=== PATIENT | female | born 1955 ===

== ENCOUNTER 2017-07-16 10:04 | Emergency (ER) | payer MEDICAID, OTHER ==
--- NOTE | 2017-07-16 10:34 | C.PDOC ---
History Of Present Illness 62 year old female presents to the emergency department with complaints of persistent watery diarrhea for the past two weeks with occasional nausea and vomiting. Patient report experiencing involuntary weight loss of 30lbs in the last 6 months. Patient denies fever, chest pain, shortness of breath, cough, dysuria, or sick contacts. Time Seen by Provider: 07/16/17 10:15 Chief Complaint (Nursing): Abdominal Pain History Per: Patient Onset/Duration Of Symptoms: Other (2 weeks) Associated Symptoms: Nausea, Vomiting, Diarrhea (watery). denies: Chest Pain, Other (shortness of breath, cough, dysuria, sick contact.) Past Medical History Reviewed: Historical Data, Nursing Documentation, Vital Signs Vital Signs: Last Vital Signs Temp 98 F 07/16/17 14:56 Pulse 88 07/16/17 14:56 Resp 18 07/16/17 14:56 BP 184/108 H 07/16/17 14:56 Pulse Ox 99 07/16/17 15:10 - Medical History PMH: HTN Surgical History: No Surg Hx Family History: States: No Known Family Hx - Social History Hx Alcohol Use: No Hx Substance Use: No - Immunization History Hx Tetanus Toxoid Vaccination: No Hx Influenza Vaccination: No Hx Pneumococcal Vaccination: No Review Of Systems Constitutional: Negative for: Fever Cardiovascular: Negative for: Chest Pain, Palpitations Respiratory: Negative for: Cough, Shortness of Breath Gastrointestinal: Positive for: Nausea, Vomiting, Diarrhea. Negative for: Abdominal Pain Genitourinary: Negative for: Dysuria, Hematuria Skin: Negative for: Rash Physical Exam - Physical Exam Appears: Well, Non-toxic, No Acute Distress Oral Mucosa: Moist Cardiovascular: Rhythm Regular Respiratory: Normal Breath Sounds, No Rales, No Rhonchi, No Wheezing Gastrointestinal/Abdominal: Normal Exam, Bowel Sounds, Soft, No Tenderness, No Guarding, No Rebound Neurological/Psych: Oriented x3 ED Course And Treatment - Laboratory Results Result Diagrams: 07/16/17 11:11 07/16/17 11:11 O2 Sat by Pulse Oximetry: 99 (RA) Pulse Ox Interpretation: Normal - CT Scan/US Abdomen/pelvis Other Rad Studies (CT/US): Interpreted By Me, Read By Radiologist, Radiology Report Reviewed CT/US Interpretation: Findings consistent with significant constipation as described. Mild fatty hepatic infiltration. There is a very tiny 3.6 mm rounded low-attenuation focus within the anterior aspect mid pancreatic body that appears to be contiguous with the pancreatic duct ; rule out IPMN. Lobular slightly thinned appearing cortex left kidney particularly along the inferior pole which could be secondary to chronic infection with scarring. There is a discrete tiny cyst lower pole right kidney with what could represent layering milk of calcium or possibly layering excrete contrast material. Additionally, there is mild dilatation of the left renal collecting system which also exhibits areas of what from felt to represent layering contrast. Slight dilatation of the left renal pelvis and proximal left ureter ; rule out UPJ. Though appears to be some minor enhancement of the urothelium of the left renal collecting system renal pelvis and proximal left ureter. . There is also a minimal wall thickening of the urinary bladder. Rule out sequela of UTI however other intrinsic -invasive urothelial abnormality not excluded. Correlation with urinalysis. Progress Note: Plan: Blood work, UA, CT scan abd/pelvis ordered and reviewed. Patient given IV NS bolus. UA shows UTI, given PO Ciprofloxacin. CT scan shows thicking of bladder and lesion in pamcreatic body - patient and family made aware of all findings and given copies of studies. On reassessment, patient is resting comfortably, in no pain/distress. On exam, abdomen is soft and nontender. Patient given Rxs for Ciprofloxacin and Colace, and instructed to follow up with GI within 1 week. She and family understand she should be brought back to ED if symptoms worsen. Disposition Counseled Patient/Family Regarding: Studies Performed, Diagnosis, Need For Followup, Rx Given - Disposition Referrals: Juan Francisco Harrison MD [Staff Provider] - Thanh Del Cid MD [Staff Provider] - Disposition: HOME/ ROUTINE Disposition Time: 15:00 Condition: STABLE Additional Instructions: FOLLOW UP WITH ACCOUNT ANALYST WITHIN 1 WEEK FOR FURTHER EVALUATION OF YOUR PANCREATIC NODULE AND CONSTIPATION/DIARRHEA USE MEDICATIONS DIRECTED DRINK PLENTY OF WATER TAKE YOUR MEDICATIONS FOR HYPERTENSION AND DIABETES EVERY DAY RETURN TO EMERGENCY ROOM IF SYMPTOMS WORSEN SEGUIMIENTO CON GASTROENTERLOGO DENTRO DE 1 SEMANA PARA BLACK NUEVA EVALUACIN DE SHEN NODULE PANCRETICO Y ESTREIMIENTO / DIARREA USE MEDICAMENTOS SEGN LO INDICADO BEBER ABUNDANTE AGUA TOME CELINA MEDICAMENTOS PARA HIPERTENSIN Y DIABETES TODOS LOS LOZA REGRESE AL KARLA DE EMERGENCIA SI LOS SNTOMAS EMPEORAN Prescriptions: Ciprofloxacin [Cipro] 1 tab PO BID #14 tab Docusate [Colace] 100 mg PO DAILY #30 cap Instructions: Constipation, Adult (DC), Urinary Tract Infection, Adult (DC), Diabetes Type 2 (DC) Forms: [employer] (Taiwanese) Print Language: SAMI - Clinical Impression Clinical Impression: UTI (urinary tract infection), Constipation, Intraductal papillary mucinous neoplasm - Scribe Statement The provider has reviewed the documentation as recorded by the Scribe (Dieudonne Farmer) Provider Attestation: All medical record entries made by the Scribe were at my direction and personally dictated by me. I have reviewed the chart and agree that the record accurately reflects my personal performance of the history, physical exam, medical decision making, and the department course for this patient. I have also personally directed, reviewed, and agree with the discharge instructions and disposition.
[2017-07-16] MEDS ORDERED: Iohexol 240 (50 ml) PO STA (10:42)
[2017-07-16] MEDS ORDERED: Sodium Chloride 0.9% 1,000 ML IV ONE ×2 (10:42→12:06)
[2017-07-16 11:19] LABS: BASO % 0.6 % (0.0-2.0); EOS % 0.7 % (0.0-4.0); HEMOGLOBIN 12.7 g/dL (11.0-16.0); LYMPH # 1.9 K/uL (1.0-4.3); LYMPH % 31.4 % (20.0-40.0); MEAN CELL VOLUME 90.4 fL (81.0-99.0); MEAN CORPUSCULAR HEMOGLOBIN 31.3 pg (27.0-31.0); MEAN CORPUSCULAR HGB CONC 34.6 g/dL (33.0-37.0); MEAN PLATELET VOLUME 9.9 fL (7.2-11.7); MONO # 0.5 K/uL (0.0-0.8); NEUT # 3.7 K/uL (1.8-7.0); NEUT % 59.3 % (50.0-75.0); RBC 4.07 Mil/uL (3.80-5.20); RED CELL DISTRIBUTION WIDTH 13.1 % (11.5-14.5); WHITE BLOOD COUNT 6.2 K/uL (4.8-10.8)
[2017-07-16] MEDS ORDERED: Iohexol 240 (50 ml) ONE (11:20)
[2017-07-16 11:33] LABS: SQUAMOUS EPITHIAL 12 /hpf (0-5); URINE AMORPHOUS SEDIMENT FEW /ul (<OCC); URINE BACTERIA FEW (<OCC); URINE BILIRUBIN NEGATIVE (NEGATIVE); URINE BLOOD 1+ (NEGATIVE); URINE CLARITY Hazy (Clear); URINE COLOR Red (YELLOW); URINE GLUCOSE (UA) 3+ mg/dL (Normal); URINE LEUKOCYTE ESTERASE 2+ Leu/uL (Negative); URINE PROTEIN NEGATIVE (NEGATIVE); URINE UROBILINOGEN NORMAL mg/dL (0.2-1.0)
[2017-07-16 11:42] LABS: ALB/GLOB RATIO 1.2 (1.0-2.1); ALBUMIN 3.9 g/dL (3.5-5.0); ALT/SGPT 11 U/L (9-52); AST/SGOT 15 U/L (14-36); BLOOD UREA NITROGEN 11 mg/dL (7-17); CALCIUM 8.5 mg/dl (8.6-10.4); GFR AFRICAN-AMERICAN > 60; GFR NON-AFRICAN AMERICAN > 60; LIPASE 49 U/L (23-300)
[2017-07-16] MEDS ORDERED: Sodium Chloride 0.9% 1,000 ML ONE (12:28)
[2017-07-16] MEDS ORDERED: Iodixanol 320 MG/ML 100 ML BOTTLE IV ONE (12:46)
[2017-07-16 13:55] VITALS: PULSE 88
--- NOTE | 2017-07-16 14:26 | CT ---
PROCEDURE: CT scan abdomen pelvis dated 07/08/2017 HISTORY: Abdominal pain with diarrhea and weight loss. COMPARISON: No prior study available for comparison TECHNIQUE: Contiguous axial images of the abdomen and pelvis performed following oral and intravenous injection of approximately 100 cc Visipaque 320 contrast material. Additional 2 dimensional sagittal and coronal reformats generated. Radiation dose: Total exam DLP = This CT exam was performed using one or more of the following dose reduction techniques: Automated exposure control, adjustment of the mA and/or kV according to patient size, and/or use of iterative reconstruction technique. FINDINGS: LOWER THORAX: Heart size is upper limits of normal/ borderline enlarged. No significant pericardial effusion. Minor passive atelectasis both posterior lower lung zones of. No evidence of basilar pneumothorax. There is a small to medium size hiatal hernia. LIVER: Liver exhibits normal size measuring approximately 16.5 cm in CC dimension. Mild diffuse fatty hepatic infiltration. No obvious hepatic mass or collection. Portal and splenic veins are opacified. The GALLBLADDER AND BILE DUCTS: Gallbladder physiologically distended. No evidence of intraluminal gallbladder calculi. PANCREAS: There is a very tiny approximately 3.6 mm rounded low-attenuation in the region of the anterior mid body of the pancreas which is too small to characterize though appears to be contiguous with the pancreatic duct. Pancreatic duct is visible lobe the remaining duct is not dilated. This small rounded low-attenuation focus is of uncertain etiology however benign or malignant cystic lesion (IPMN) not excluded. Followup studies such as repeat CT scan with pancreatic protocol could be performed. Alternately, MRCP may be of some benefit. SPLEEN: Spleen exhibits normal size and attenuation pattern without masses collections or calcifications. ADRENALS: No adrenal lesions seen KIDNEYS AND URETERS: The left kidney exhibits somewhat lobular cortical contour and thinning particularly along the lower pole suggesting sequela of chronic scarring new. In addition, there appears to be dense contrast material layering within the dependent portion of the dilated calices. . There is mild dilatation of the upper pole collecting system and right renal pelvis and proximal ureter which tapers rapidly; rule out UPJ. . There is also slight enhancement of the urothelium of the left renal collecting system, left renal pelvis and proximal left ureter. Rule out UTI although other intrinsic -invasive urothelial abnormality not excluded. In addition, there also appears to be a discrete rounded approximately 13 mm cyst lower pole left kidney which also exhibits CT layering hyperdense possibly representing milk of calcium. Note also that is difficult to distinguish layering contrast material from concomitant calculi. Follow-up renal ultrasound could be performed for further evaluation BLADDER: Urinary bladder is physiologically distended with minimal wall thickening. Rule out cystitis. Correlation with urinalysis recommended. REPRODUCTIVE: Questionable small peripherally enhancing uterine fibroid. Pelvic ultrasound followup could be performed. Questionable trace amount of free fluid in the pelvis APPENDIX: The appendix is not seen with complete certainty however what could represent a incompletely visualized appendix seen on axial series 3 image number [id number]. No definitive inflammatory changes right lower quadrant of the abdomen. BOWEL: Evaluation of the bowel is limited due to the incomplete opacification. The stomach is distended with food debris liquid and air. Visualized loops of small bowel exhibit relatively normal contour and caliber. No evidence of acute mechanical small bowel obstruction. There is a very large amount of stool seen throughout the cecum at ascending and transverse colon to the level of the proximal descending colon consistent with fecal retention/ constipation. Lesser amount of stool seen within the sigmoid colon and rectum. No definitive evidence of mural wall thickening. PERITONEUM: No gross free intraperitoneal air. Questionable trace fluid within the cul de sac. . Small fat containing ventral wall hernia. The the LYMPH NODES: Unremarkable. No enlarged lymph nodes. VASCULATURE: No evidence of abdominal aortic or iliac artery aneurysms. . BONES: Minor multilevel degenerative spondylosis of the lower thoracic and lumbar spine. There are scattered of lucencies seen throughout the lower thoracic and upper lumbar spine possibly due to more localized areas of demineralization. Clinical correlation recommended to exclude the possibility of early lytic lesions. OTHER FINDINGS: None. IMPRESSION: Findings consistent with significant constipation as described. Mild fatty hepatic infiltration. There is a very tiny 3.6 mm rounded low-attenuation focus within the anterior aspect mid pancreatic body that appears to be contiguous with the pancreatic duct ; rule out IPMN. Lobular slightly thinned appearing cortex left kidney particularly along the inferior pole which could be secondary to chronic infection with scarring. There is a discrete tiny cyst lower pole right kidney with what could represent layering milk of calcium or possibly layering excrete contrast material. Additionally, there is mild dilatation of the left renal collecting system which also exhibits areas of what from felt to represent layering contrast. Slight dilatation of the left renal pelvis and proximal left ureter ; rule out UPJ. Though appears to be some minor enhancement of the urothelium of the left renal collecting system renal pelvis and proximal left ureter. . There is also a minimal wall thickening of the urinary bladder. Rule out sequela of UTI however other intrinsic -invasive urothelial abnormality not excluded. Correlation with urinalysis.
[2017-07-16 14:57] VITALS: BP 184/108; RESP 18; TEMP 98
[2017-07-16 15:04] VITALS: O2SAT 99
== END 2017-07-16 15:33 | disposition home or self-care (01) ==
LOC: C.ER 10:04
DX: N39.0 Urinary tract infection, site not specified (principal); K59.00 Constipation, unspecified; D05.10 Intraductal carcinoma in situ of unspecified breast; I10 Essential (primary) hypertension
CPT/HCPCS: 74177; 80053; 81001; 82948; 83690; 85025; 87086; 87181; 96360; 96361; 99285; J7040; Q9966; Q9967

== ENCOUNTER 2017-08-16 22:09 | Emergency (ER) | payer MEDICAID ==
[2017-08-16 22:19] VITALS: RESP 18; TEMP 98.1
[2017-08-16] MEDS ORDERED: Sodium Chloride 0.9% 1,000 ML IV ONE (22:24)
--- NOTE | 2017-08-16 22:26 | C.PDOC ---
History Of Present Illness 62 year old female with a Hx of HTN and diabetes presents to the ER with a complaint of nausea and vomiting for the past 3 days. Patient denies any complaints of pain, fever, or cough. Patient is a poor historian. Time Seen by Provider: 08/16/17 22:17 Chief Complaint (Nursing): GI Problem History Per: Patient History/Exam Limitations: no limitations Onset/Duration Of Symptoms: Days Current Symptoms Are (Timing): Still Present Quality Of Discomfort: Unable To Describe Associated Symptoms: Nausea, Vomiting. denies: Fever, Chest Pain, Other (Co) Exacerbating Factors: None Alleviating Factors: None Recent travel outside of the [place]: No Abnormal Vaginal Bleeding: No Past Medical History Reviewed: Historical Data, Nursing Documentation, Vital Signs Vital Signs: Last Vital Signs Temp 98.1 F 08/16/17 22:17 Pulse 66 08/17/17 00:14 Resp 18 08/17/17 00:14 BP 120/63 08/17/17 00:14 Pulse Ox 100 08/17/17 00:14 - Medical History PMH: HTN Family History: States: Unknown Family Hx - Social History Hx Alcohol Use: No Hx Substance Use: No - Immunization History Hx Tetanus Toxoid Vaccination: No Hx Influenza Vaccination: No Hx Pneumococcal Vaccination: No Review Of Systems Constitutional: Negative for: Fever, Chills Cardiovascular: Negative for: Chest Pain, Palpitations Respiratory: Negative for: Cough Gastrointestinal: Positive for: Nausea, Vomiting. Negative for: Abdominal Pain Physical Exam - Physical Exam Appears: Non-toxic Skin: Normal Color, Warm, Dry Head: Atraumatic, Normacephalic Eye(s): bilateral: Normal Inspection Oral Mucosa: Moist Chest: Symmetrical, No Tenderness Cardiovascular: Rhythm Regular Respiratory: Normal Breath Sounds, No Rales, No Rhonchi, No Wheezing Gastrointestinal/Abdominal: Soft, No Tenderness Neurological/Psych: Oriented x3, Normal Speech ED Course And Treatment - Laboratory Results Result Diagrams: 08/16/17 22:50 08/16/17 22:50 O2 Sat by Pulse Oximetry: 99 (Room air) Pulse Ox Interpretation: Normal Medical Decision Making Medical Decision Making: nonspecific nausea- r/o metabolic infectious, abdominal cardiac etiology Plan: * EKG * Blood work * IV fluids * Zofran * pt reassesed abd soft nottp. all symptosms resolved. labs unremarkable. advise outpt fu and return precautions Disposition - Disposition Referrals: Juan Francisco Harrison MD [Primary Care Provider] - Disposition: HOME/ ROUTINE Disposition Time: 12:00 Condition: STABLE Additional Instructions: follow up with your doctor. return to er with worsening symptoms or concerns. please discuss your lab tests with your doctor/specialist. Prescriptions: Cefpodoxime [Vantin] 100 mg PO BID #14 tab Instructions: Urinary Tract Infections in Adults, Nausea and Vomiting, Adult Forms: [employer] (Lithuanian) Print Language: GEORGIAN - Clinical Impression Clinical Impression: UTI (urinary tract infection), Nausea - Scribe Statement The provider has reviewed the documentation as recorded by the Scribmagalis Acharya All medical record entries made by the Scribe were at my direction and personally dictated by me. I have reviewed the chart and agree that the record accurately reflects my personal performance of the history, physical exam, medical decision making, and the department course for this patient. I have also personally directed, reviewed, and agree with the discharge instructions and disposition.
[2017-08-16 22:57] LABS: BASO # 0.1 K/uL (0.0-0.2); BASO % 0.9 % (0.0-2.0); EOS % 0.3 % (0.0-4.0); HEMOGLOBIN 13.9 g/dL (11.0-16.0); LYMPH # 2.1 K/uL (1.0-4.3); LYMPH % 23.8 % (20.0-40.0); MEAN CELL VOLUME 90.5 fL (81.0-99.0); MEAN CORPUSCULAR HEMOGLOBIN 31.7 pg (27.0-31.0); MONO # 0.9 K/uL (0.0-0.8); MONO % 10.5 % (0.0-10.0); NEUT # 5.6 K/uL (1.8-7.0); NEUT % 64.5 % (50.0-75.0); NRBC % 0.1 % (0.0-2.0); RBC 4.38 Mil/uL (3.80-5.20); RED CELL DISTRIBUTION WIDTH 12.7 % (11.5-14.5); WHITE BLOOD COUNT 8.7 K/uL (4.8-10.8)
[2017-08-16 23:06] LABS: ALBUMIN 3.9 g/dL (3.5-5.0); ALT/SGPT 19 U/L (9-52); AST/SGOT 22 U/L (14-36); BLOOD UREA NITROGEN 36 mg/dL (7-17); CALCIUM 9.1 mg/dl (8.6-10.4); GFR AFRICAN-AMERICAN > 60; GFR NON-AFRICAN AMERICAN > 60; LIPASE 84 U/L (23-300)
[2017-08-16 23:07] LABS: INR 1.1; PROTHROMBIN TIME 11.8 SECONDS (9.7-12.2)
[2017-08-16 23:55] LABS: SQUAMOUS EPITHIAL 4 /hpf (0-5); URINE BACTERIA RARE (<OCC); URINE BILIRUBIN NEGATIVE (NEGATIVE); URINE CLARITY Hazy (Clear); URINE GLUCOSE (UA) 3+ mg/dL (Normal); URINE LEUKOCYTE ESTERASE 3+ Leu/uL (Negative); URINE PROTEIN 1+ mg/dL (NEGATIVE); URINE UROBILINOGEN NORMAL mg/dL (0.2-1.0)
[2017-08-17 00:12] LABS: URINE BLOOD NEGATIVE (NEGATIVE)
[2017-08-17] MEDS ORDERED: cefTRIAXone IV 1 gm in Dextros 50 ML IVPB ONE ×2 (00:13→00:22)
[2017-08-17 00:14] VITALS: BP 120/63; PULSE 66
[2017-08-17 00:19] LABS: URINE COLOR YELLOW (YELLOW)
--- NOTE | 2017-08-19 05:33 | CARD ---
APPROVED REPORT EKG Measurement Heart [id number] <Conclusion> Normal sinus rhythm Possible Left atrial enlargement Borderline ECG
[2017-08-19 19:13] VITALS: O2SAT 99
== END 2017-08-17 00:52 | disposition home or self-care (01) ==
LOC: C.ER 22:09 → SUPCPDRO 22:09 → C.ER 08-17 00:52
DX: N39.0 Urinary tract infection, site not specified (principal); R11.0 Nausea; I10 Essential (primary) hypertension; E11.9 Type 2 diabetes mellitus without complications
CPT/HCPCS: 80053; 81001; 82948; 83690; 84484; 85025; 85610; 85730; 93005; 96361; 96365; 96375; 99284; J0696; J2405; J7030